=== PATIENT | female | born 1960 | race Caucasian/White ===

== ENCOUNTER 2019-10-01 15:57 | Emergency (ER) | payer OTHER ==
[2019-10-01 16:05] VITALS: BP 149/90
--- NOTE | 2019-10-01 16:09 | ED Upper Extremity ---
General Chief Complaint: Upper Extremity Stated Complaint: SHOULDER PAIN Source: patient Exam Limitations: no limitations History of Present Illness Date Seen by Provider: October 01, 2019 Time Seen by Provider: 16:06 Initial Comments 59-year-old female presents with right shoulder pain. Patient reports that this morning around quarts of 6 she was getting ready to walk her dog on a leash. Straight all ran by and it jerked her arm and her shoulder. Patient has diff iculty lifting it above 85-90 out off of her body. She has good internal and external rotation. She denies any deformity. She has no other complaints or concerns. Allergies and Home Medications Allergies Coded Allergies: meperidine (Verified Allergy, Unknown, "made me crazy", 10/01/19) Patient Home Medication List Home Medication List Reviewed: Yes Review of Systems Constitutional: No chills, No fever Respiratory: No cough, No short of breath Cardiovascular: No chest pain Gastrointestinal: no symptoms reported Genitourinary: no symptoms reported Musculoskeletal: see HPI Skin: no symptoms reported Past Ckwtwjb-Dcbtgu-Fpetpt Hx Past Med/Social Hx: Reviewed Nursing Past Med/Soc Hx Patient Social History Recent Foreign Travel: No Contact w/Someone Who Travel: No Physical Exam Vital Signs Vital Signs - First Documented 10/01/19 16:05 Temp 36.3 Pulse 18 Resp 18 B/P (MAP) 149/90 (109) Pulse Ox 97 Capillary Refill : Height, Weight, BMI Height: '" Weight: lbs. oz. kg; BMI Method: General Appearance: no apparent distress Neck: full range of motion, supple Cardiovascular: normal peripheral pulses, regular rate, rhythm Respiratory: lungs clear, normal breath sounds Shoulder: limited ROM (pain with abduction approximately 85), pain, soft tissue tenderness Elbow/Forearm: normal inspection, no evidence of injury, normal ROM Wrist: Yes non-tender, Yes no evidence of injury, Yes normal ROM Hand: no evidence of injury, normal ROM Neurologic/Tendon: normal sensation, normal motor functions Progress/Results/Core Measures Results/Orders My Orders Orders - ERIK LINO DO Shoulder 2 View Left (10/01/19 16:11) Vital Signs/I&O 10/01/19 16:05 Temp 36.3 Pulse 18 Resp 18 B/P (MAP) 149/90 (109) Pulse Ox 97 Diagnostic Imaging Diagonstic Imaging: Xray Plain Films/CT/US/NM/MRI: other (Left Shoulder ) Comments No acute fracture or dislocation noted Reviewed: Reviewed by Me Departure Impression Primary Impression: Left shoulder strain Qualified Codes: S46.912A - Strain of unspecified muscle, fascia and tendon at shoulder and upper arm level, left arm, initial encounter Disposition: HOME, SELF-CARE Condition: Stable Departure-Patient Inst. Referrals: [facility] Patient Instructions: Exercise Band Exercises for the Shoulder, Muscle Strain, Passive Range of Motion Exercises, Neck and Shoulders, Shoulder Pain (DC), Shoulder Tendinopathy (DC) Add. Discharge Instructions: 4% topical lidocaine with menthol to affected area as needed Ibuprofen or Tylenol as needed for pain All discharge instructions reviewed with patient and/or family. Voiced understanding. ERIK LINO DO October 01, 2019 16:09
[2019-10-01] MEDS ORDERED: NALT50TA (16:10)
[2019-10-01] MEDS ORDERED: VENL150C98 (16:10)
[2019-10-01] MEDS ORDERED: TRAZ-227 (16:10)
--- NOTE | 2019-10-01 16:38 | Diagnostic Imaging Report ---
INDICATION: Pain status post injury. COMPARISON: None. FINDINGS: Two views of the left shoulder were obtained. There is no fracture, dislocation, or other acute bony abnormality identified. The soft tissues appear unremarkable. No radiopaque foreign bodies identified. The visualized portions of the left lung are clear. IMPRESSION: No acute fractures or dislocations of the left shoulder. Dictated by: Dictated on workstation # [id number]
== END 2019-10-01 16:48 | disposition home or self-care (01) ==
LOC: ER FS 15:59
DX: S46.912A Strain of unspecified muscle, fascia and tendon at shoulder and upper arm level, left arm, initial encounter (principal); Z88.5 Allergy status to narcotic agent; X50.9XXA Other and unspecified overexertion or strenuous movements or postures, initial encounter
CPT/HCPCS: 73030